=== PATIENT | male | born 1965 | race Caucasian/White ===

== ENCOUNTER 2017-05-20 22:45 | Emergency (ER) | payer SELFPAY ==
[~2017-05-20] VITALS: Ht 175.3 cm; Wt 66.0 kg
[~2017-05-20 22:45] MED LIST: EPIP0.3I IM; HYDR25 PO; PRED20 PO; RANI300T PO
[2017-05-20 22:48] VITALS: BP 111/68; PULSE 73; RESP 18; TEMP 97.6; O2SAT 99
[2017-05-20] MEDS ORDERED: KETOROLAC TROMETHAMINE 60 MG/2 ML (IM) VIAL IM ONE (23:00)
[2017-05-20] MEDS ORDERED: TETANUS/DIPHTHERIA TOXOID ADULT 0.5 ML VIAL IM ONE (23:00)
--- NOTE | 2017-05-20 23:21 | PD ---
HPI . Chest injury Chief Complaint: Pain: Acute or Chronic Time Seen by Provider: 22:53 Travel History International Travel<30 days: No Contact w/Intl Traveler<30days: No Traveled to known affect area: No History of Present Illness HPI Patient presents for the evaluation of injury sustained to his right chest. The injury occurred just prior to arrival. He states that he will hold out of bed and struck his right chest wall on a bedside table. He is complaining with 8/10 pain. No modifying factors. He does not know the date of his last tetanus shot. He is not having any difficulty breathing. [facility] Past Medical History Medical History: Denies Significant Hx Diminished Hearing: No Past Surgical History Surgical History: No Previous Surgery Social History Alcohol Use: Yes (4 BEERS A DAY) Tobacco Use: Yes (1 PPD) Substance Use: No Allergies-Medications (Allergen,Severity, Reaction): Coded Allergies: No Known Allergies (Verified Adverse Reaction, Unknown, 05/20/17) Reported Meds & Prescriptions Reported Meds & Active Scripts Active No Active Prescriptions or Reported Medications Review of Systems Except as stated in HPI: all other systems reviewed are Neg Physical Exam Narrative GENERAL: Awake and alert. He is supporting his body weight using his upper extremities without any apparent pain in his chest. SKIN: Warm and dry. He has an abrasion to the right lateral chest wall. HEAD: Normocephalic/atraumatic. EYES: Pupils are equal. Extraocular movements are intact. NECK: Normal range of motion. CARDIOVASCULAR: Regular rate and rhythm. RESPIRATORY: Nonlabored respirations. Lungs are clear with full air movement throughout. MUSCULOSKELETAL: Atraumatic. Tenderness to palpation of the lateral chest wall. No crepitus of the ribs noted. NEUROLOGICAL: Nonfocal. PSYCHIATRIC: Appropriate mood and affect. Data Data Last Documented VS Vital Signs Date Time Temp Pulse Resp B/P (MAP) Pulse Ox O2 Delivery O2 Flow Rate FiO2 05/20/17 22:52 22 05/20/17 22:48 97.6 73 111/68 (82) 99 Orders Orders Ribs, Uni (W/Exp Cxr-Min 3vw) (05/20/17 22:53) Ketorolac Inj (Toradol Inj) (05/20/17 23:00) Tetanus/Diphtheria Tox Adult (Tetanus/Di (05/20/17 23:00) MDM Medical Decision Making Medical Screen Exam Complete: Yes Emergency Medical Condition: Yes Differential Diagnosis Differential diagnosis of chest trauma includes but is not limited to superficial abrasions/contusions, rib fracture, pneumothorax, hemothorax, pulmonary contusion, cardiac contusion, ruptured thoracic aorta Narrative Course This patient presents with a right injury. He fell out of bed and struck his right chest wall on a bedside table. He has pain in his right lateral rib cage. He is not having any respiratory difficulty. He did not recall the date of his last tetanus shot. Tetanus has been updated. R rib X-rays>>: No definite displaced rib fractures. The patient will be discharged home with prescriptions for ibuprofen and Ultram Diagnosis Primary Impression: Contusion of rib on right side Qualified Codes: S20.211A - Contusion of right front wall of thorax, initial encounter Patient Instructions: General Instructions, Rib Contusion (ED) Med/Other Pt SpecificInfo: Prescription(s) given Scripts Tramadol (Ultram) 50 Mg Tab 50 MG PO Q4H Y for PAIN, #12 TAB 0 Refills Prov: Vandana Pugh MD 05/20/17 Ibuprofen (Ibuprofen) 800 Mg Tab 800 MG PO Q8H Y for Pain/Inflammation, #60 TAB 0 Refills Prov: Vandana Pugh MD 05/20/17 Disposition: 01 DISCHARGE HOME Condition: Stable Vandana Pugh MD May 20, 2017 23:21
--- NOTE | 2017-05-20 23:24 | RADRPT ---
EXAM DATE/TIME: 05/20/2017 23:04 [place] COMPARISON: No previous studies available for comparison. INDICATIONS : Right posterior, inferior rib pain post fall. MEDICAL HISTORY : None. SURGICAL HISTORY : None. ENCOUNTER: Initial ACUITY: 1 day PAIN SCORE: 9/10 LOCATION: Right chest FINDINGS: No definite displaced rib fractures or pneumothorax is identified. No definite pneumothorax is seen f or technique. CONCLUSION: No definite displaced rib fractures. Steven Navarrete MD on May 20, 2017 at 23:22 Board Certified Radiologist. This report was verified electronically.
[2017-05-20] MEDS ORDERED: TRAM50 PO (23:29)
[2017-05-20] MEDS ORDERED: IBUP1TAB7 PO (23:29)
== END 2017-05-20 23:40 | disposition home or self-care (01) ==
LOC: NEPD 22:45
DX: S20.211A Contusion of right front wall of thorax, initial encounter (principal); W06.XXXA Fall from bed, initial encounter; Z23 Encounter for immunization
CPT/HCPCS: 71101; 90471; 90714; 96372; 99284; J1885

== ENCOUNTER 2017-06-11 20:28 | Emergency (ER) | payer SELFPAY ==
[~2017-06-11] VITALS: Ht 175.3 cm; Wt 72.5 kg
[~2017-06-11 20:28] MED LIST changes: -EPIP0.3I IM; -HYDR25 PO; +IBUP1TAB7 PO; -PRED20 PO; -RANI300T PO; +TRAM50 PO
[2017-06-11 21:02] VITALS: BP 129/80; PULSE 82; RESP 16; TEMP 98.3; O2SAT 100
[2017-06-11] MEDS ORDERED: LIDOCAINE HCL 1% 20 ML VIAL INFIL ONE (22:15)
[2017-06-11] MEDS ORDERED: SULFAMETHOXAZOLE-TRIMETHOPRIM DS 800-160 MG TAB PO ONE (22:30)
[2017-06-11] MEDS ORDERED: CLINDAMYCIN 150 MG CAP PO ONE (22:30)
[2017-06-11] MEDS ORDERED: ACETAMINOPHEN/HYDROcodone 325 MG/5 MG TAB PO ONE (22:30)
[2017-06-11] MEDS ORDERED: BACT800T5 PO (22:35)
[2017-06-11] MEDS ORDERED: TRAM50 PO (22:35)
[2017-06-11] MEDS ORDERED: CLIN150C14 PO (22:35)
--- NOTE | 2017-06-11 22:35 | PD ---
HPI Chief Complaint: Skin Problem Time Seen by Provider: 22:02 Travel History International Travel<30 days: No Contact w/Intl Traveler<30days: No Traveled to known affect area: No History of Present Illness HPI 51-year-old male complains of pain swelling on the left forearm. Patient states that he probably got bit by an insect on the left arm 4 days ago. Patient thought that he has a foreign body in the lesion on the left arm. Patient tried to get the foreign out with a pair of tweezers 4 days ago. Patient states that he has increasing redness swelling pain on the left forearm since then. Patient denies any fever chills. Patient stated that he is up-to- date with TD booster. PFSH Past Medical History Medical History: Denies Significant Hx Diminished Hearing: No Immunizations Current: No Tetanus Vaccination: < 5 Years Influenza Vaccination: No Past Surgical History Surgical History: No Previous Surgery Social History Alcohol Use: Yes (4 BEERS A DAY) Tobacco Use: Yes (1 PPD) Substance Use: No Allergies-Medications (Allergen,Severity, Reaction): Coded Allergies: No Known Allergies (Verified Adverse Reaction, Unknown, 06/11/17) Reported Meds & Prescriptions Reported Meds & Active Scripts Active No Active Prescriptions or Reported Medications Review of Systems General / Constitutional: No: Fever Eyes: No: Visual changes HENT: No: Headaches Cardiovascular: No: Chest Pain or Discomfort Respiratory: No: Shortness of Breath Gastrointestinal: No: Abdominal Pain Genitourinary: No: Dysuria Musculoskeletal: No: Pain Skin: No Rash Neurologic: No: Weakness Psychiatric: No: Depression Endocrine: No: Polydipsia Hematologic/Lymphatic: No: Easy Bruising Physical Exam Narrative GENERAL: Well-nourished, well-developed patient. SKIN: Focused skin assessment warm/dry. HEAD: Normocephalic. EYES: No scleral icterus. No injection or drainage. NECK: Supple, trachea midline. No JVD or lymphadenopathy. CARDIOVASCULAR: Regular rate and rhythm without murmurs, gallops, or rubs. RESPIRATORY: Breath sounds equal bilaterally. No accessory muscle use. GASTROINTESTINAL: Abdomen soft, non-tender, nondistended. MUSCULOSKELETAL: No cyanosis, or edema. BACK: Nontender without obvious deformity. No CVA tenderness. Patient has a nodular lesion of distal left forearm over the ulnar aspect. Patient has an ulcer lesion in the middle of the soft tissue swelling. Mild discharge noted. No induration. Data Data Last Documented VS Vital Signs Date Time Temp Pulse Resp B/P (MAP) Pulse Ox O2 Delivery O2 Flow Rate FiO2 06/11/17 21:02 98.3 82 16 129/80 (96) 100 Orders Orders Lidocaine 1% Inj (Xylocaine 1% Inj) (06/11/17 22:15) Sulfamet-Trimeth Ds 800-160 Mg (Bactrim (06/11/17 22:30) Acetamin-Hydrocod 325-5 Mg ([place] 5-325 (06/11/17 22:30) Wound Culture And Gram Stain (06/11/17 22:26) Clindamycin (Cleocin) (06/11/17 22:30) Ed Discharge Order (06/11/17 22:27) MDM Medical Decision Making Medical Screen Exam Complete: Yes Emergency Medical Condition: Yes Differential Diagnosis Differential diagnosis including cellulitis, abscess. Narrative Course 51-year-old male with infected lesion left forearm. Clindamycin 300 mg p.o. given. Bactrim DS 1 tablet p.o. given. Lortab 5/325, 1 tablet p.o. given. Procedures Procedure Narrative I&D procedure: 1% lidocaine local anesthesia. Betadine wash. 1 cm incision was made on the skin the left forearm with #11 scalpel. Wound culture obtained. Small amount of pus obtained. 0.25 inch packing applied. Dressing applied. Diagnosis Primary Impression: Abscess of left forearm Patient Instructions: General Instructions Additional Instructions: Take medications as directed. Wound care daily. Return in 2 days for recheck. Med/Other Pt SpecificInfo: Prescription(s) given Scripts Tramadol (Ultram) 50 Mg Tab 50 MG PO Q6H Y for PAIN, #20 TAB 0 Refills Prov: Samuel Dixon MD 06/11/17 Sulfamethoxazole-Trimethoprim (Bactrim DS) 800-160 Mg Tab 1 TAB PO BID for Infection, #20 TAB 0 Refills Prov: Samuel Dixon MD 06/11/17 Clindamycin (Clindamycin) 150 Mg Cap 300 MG PO QID for Infection, #80 CAP 0 Refills Prov: Samuel Dixon MD 06/11/17 Disposition: 01 DISCHARGE HOME Condition: Stable Samuel Dixon MD Jun 11, 2017 22:35
== END 2017-06-11 23:02 | disposition home or self-care (01) ==
LOC: PHED 20:28 → PHEFT 23:02
DX: L02.414 Cutaneous abscess of left upper limb (principal); B95.62 Methicillin resistant Staphylococcus aureus infection as the cause of diseases classified elsewhere; F17.200 Nicotine dependence, unspecified, uncomplicated
CPT/HCPCS: 10061; 86403; 87070; 87186; 87205

== ENCOUNTER 2017-06-15 18:13 | Emergency (ER) | payer SELFPAY | END 2017-06-15 19:06 | disposition home or self-care (01) | LOC: PHEFT 18:13 | DX: L02.414 Cutaneous abscess of left upper limb (principal); F17.210 Nicotine dependence, cigarettes, uncomplicated | CPT/HCPCS: 99281 ==